=== PATIENT | male | born 1985 | race Caucasian/White ===

== ENCOUNTER 2019-06-23 20:04 | Emergency (ER) | payer SELFPAY ==
[~2019-06-23] VITALS: Ht 177.8 cm; Wt 95.2 kg
[~2019-06-23 20:04] MED LIST: ACET-141 PO; HYDR-3980 PO; IBUP-1542 PO; SULF1TAB31 PO
--- NOTE | 2019-06-23 20:07 | ERD ---
ER Documentation Chief Complaint Chief Complaint unable to urinate HPI The patient is a 33-year-old male, presenting to the ER because he is unable to urinate for the last hour, had similar symptom about 7 years ago. He denies fever, chills, neck pain, chest pain, dyspnea, diarrhea, constipation. He does not smoke nor drink He was treated by EMS with fentanyl 100 mcg IV with some response. Past medical history: History of kidney stone Past surgical history: None ROS All systems reviewed and are negative except as per history of present illness. Medications Home Meds Active Scripts Hydrocodone/Acetaminophen (Wells 10-325 Tablet) 1 Each Tablet, 1 TAB PO Q6H PRN for PAIN, #7 TAB Prov:ANN BUCK MD 06/23/19 Ibuprofen* (Motrin*) 600 Mg Tab, 600 MG PO Q6H PRN for PAIN AND OR ELEVATED TEMP, #30 TAB Prov:ANN BUCK MD 06/23/19 Sulfamethoxazole/Trimethoprim* (Bactrim Ds* Tablet) 1 Each Tablet, 1 TAB PO BID for 10 Days, TAB Prov:ANN BUCK MD 06/23/19 Allergies Allergies: Coded Allergies: No Known Allergy (Unverified , 06/23/19) Physical Exam Vitals Vital Signs Date Temp Pulse Resp B/P (MAP) Pulse Ox O2 O2 Flow FiO2 Time Delivery Rate 06/23/19 98.8 90 36 110/93 100 Room Air 20:19 (99) 06/23/19 98.8 90 36 110/93 100 20:15 (99) Physical Exam Const: No acute distress. Head: Atraumatic. Eyes: Normal Conjunctiva. ENT: Normal External Ears, Nose and Mouth. Neck: Full range of motion. No meningismus. Resp: Clear to auscultation bilaterally. Cardio: Regular rate and rhythm. Abd: Soft, non distended, normal bowel sounds, vague and diffuse abdominal tenderness, more tenderness in the lower abdomen. Skin: No petechiae or rashes. Back: No midline or flank tenderness. Ext: No cyanosis, or edema. Neur: Awake and alert. No focal deficit Psych: Anxious Result Diagram: 06/23/19202206/23/192022 Results 24 hrs Laboratory Tests Test 06/23/19 20:23 06/23/19 22:48 White Blood Count 9.9 10^3/ul Red Blood Count 5.07 10^6/ul Hemoglobin 14.8 g/dl Hematocrit 41.8 % Mean Corpuscular Volume 82.4 fl Mean Corpuscular Hemoglobin 29.2 pg Mean Corpuscular Hemoglobin Concent 35.4 g/dl Red Cell Distribution Width 12.1 % Platelet Count 296 10^3/UL Mean Platelet Volume 9.3 fl Immature Granulocytes % 0.400 % Neutrophils % 78.1 % Lymphocytes % 15.3 % Monocytes % 5.6 % Eosinophils % 0.1 % Basophils % 0.5 % Nucleated Red Blood Cells % 0.0 /100WBC Immature Granulocytes # 0.040 10^3/ul Neutrophils # 7.8 10^3/ul Lymphocytes # 1.5 10^3/ul Monocytes # 0.6 10^3/ul Eosinophils # 0.0 10^3/ul Basophils # 0.1 10^3/ul Nucleated Red Blood Cells # 0.0 10^3/ul Sodium Level 140 mmol/L Potassium Level 3.4 mmol/L Chloride Level 105 mmol/L Carbon Dioxide Level 21 mmol/L Anion Gap 14 Blood Urea Nitrogen 16 mg/dl Creatinine 0.70 mg/dl Est Glomerular Filtrat Rate mL/min > 60 mL/min Glucose Level 112 mg/dl Calcium Level 9.8 mg/dl Total Bilirubin 0.7 mg/dl Direct Bilirubin 0.00 mg/dl Indirect Bilirubin 0.7 mg/dl Aspartate Amino Transf (AST/SGOT) 32 IU/L Alanine Aminotransferase (ALT/SGPT) 46 IU/L Alkaline Phosphatase 74 IU/L Total Protein 8.0 g/dl Albumin 4.7 g/dl Globulin 3.30 g/dl Albumin/Globulin Ratio 1.42 Lipase 42 U/L Bedside Urine pH (LAB) 6.5 Bedside Urine Protein (LAB) 1+ Bedside Urine Glucose (UA) Negative Bedside Urine Ketones (LAB) Negative Bedside Urine Blood 1+ Bedside Urine Nitrite (LAB) Negative Bedside Urine Leukocyte Esterase (L Negative Current Medications Medications Dose Sig/Arnaldo Start Time Status Last (Trade) Ordered Route PRN Stop Time Admin Dose Reason Admin 1 mg ONCE STAT 06/23/19 DC 06/23/19 Hydromorphone IV 20:08 20:11 HCl 06/23/19 20:09 (Dilaudid) Ketorolac 30 mg ONCE STAT 06/23/19 DC 06/23/19 Tromethamine IV 20:08 20:14 (Toradol) 06/23/19 20:09 Lidocaine 20 ml ONCE ONCE 06/23/19 DC 06/23/19 (Lidocaine MM 22:00 21:59 2% Urojet) 06/23/19 22:01 Ondansetron 4 mg ONCE STAT 06/23/19 DC 06/23/19 HCl (Zofran IV 21:47 22:00 Inj) 06/23/19 21:48 Lorazepam 0.5 mg ONCE ONCE 06/23/19 DC 06/23/19 (Ativan) IV 22:00 22:00 06/23/19 22:01 Potassium 40 meq ONCE STAT 06/23/19 DC 06/23/19 Chloride PO 22:31 23:10 (Klor-Con 20) 06/23/19 22:41 1 tab ONCE ONCE 06/23/19 DC 06/23/19 Trimethoprim/ PO 23:00 23:11 06/23/19 23:01 Sulfamethoxaz ole (Bactrim (Ds)) Procedures/[place] [address] Radiology Main Line: [phone] DIAGNOSTIC IMAGING REPORT Patient: [place] GARCÍA : 1985 Age: 33 Sex: M MR #: [id number] DOS: 06/23/192007 Ordering MD: ANN BUCK MD Location: E/R Room/Bed: PROCEDURE: CT Abdomen and Pelvis without contrast. CLINICAL INDICATION: Abdominal pain. TECHNIQUE: Unenhanced CT scan of the abdomen and pelvis was performed on a multi-detector high-resolution CT scanner. Coronal and sagittal reformatted florence ges were obtained from the axial source images. Images were reviewed on a high- resolution PACS workstation. The total exam CTDI equals 17.1 mGy and the total exam DLP equals 1098.9 mGy-cm. DICOM images are available. One or more of the following dose reduction techniques were utilized: 1.) Automated exposure control 2.) Adjustment of the mA +/- kV according to patient's size 3.) Use of iterative reconstruction technique. COMPARISON: None available in the PACs at time of image interpretation. FINDINGS: Evaluation of the soft tissues and viscera is limited in the absence of contrast. Partially visualized mild bibasilar pulmonary subsegmental atelectasis, evaluation degraded by respiratory motion artifact. Heart base appears normal. Systemic vasculature appears grossly normal. No pathologic lymphadenopathy identified by imaging criteria. Visualized liver demonstrates normal size and contour, without identifiable focal mass lesion in the absence of intravenous contrast. Gallbladder is mildly distended without identifiable pericholecystic inflammatory change or extrahepatic biliary ductal dilatation. Pancreas demonstrates normal contour, without identifiable peripancreatic inflammatory change. Spleen is normal in size. Adrenal glands appear normal. Small sliding hiatal hernia involving the gastric cardia and proximal fundus. Bowel is unobstructed without free air, free fluid or focal mesenteric inflammatory change. Appendix appears normal. No identifiable significant diverticulosis nor evidence of acute diverticulitis. Kidneys demonstrate normal size, contour and orientation without identifiable focal mass lesion in the absence of intravenous contrast. No nephrolithiasis nor identifiable ureterolithiasis. Mild bilateral hydroureteronephrosis to the level of the ureterovesicular junctions in the presence of a severely distended urinary bladder. Prostate gland is mildly enlarged to 5.6 cm no with slight impression on the bladder neck. Osseous structures are intact with minimal spondylotic changes. Tiny fatty umbilical and bilateral in renal hernias. Minimal symmetric gynecomastia. IMPRESSION: 1. Mild bilateral hydroureteronephrosis in the presence of a severely distended urinary bladder, possibly reflecting bladder outlet obstruction. No identifiable nephrolithiasis or ureterolithiasis. Consider Kaye catheter decompression. 2. Mild prostatomegaly impressing on the bladder neck, possibly reflecting acute prostatitis. 3. Small sliding hiatal hernia. The bowel is unobstructed without evidence of perforation or abscess, and the appendix appears normal. RPTAT: HSAN Physician Viviana Date Time Electronically viewed and signed by Physician Viviana on 06/23/2019 21:04 xN/ CC: ANN BUCK MD [id number] MEDICAL MAKING DECISION: The patient is a 33-year-old male, presenting with acute prostatitis, acute urine retention, acute hypokalemia. He was treated with Dilaudid 1 mg IV x2 and Toradol 30 mg IV for pain, Kaye catheter was inserted and drained about 1300 mm of urine with spontaneous relief, he was treated with potassium chloride 40 mEq p.o. for acute hypokalemia, urine culture was submitted, he was treated with Bactrim DS for acute prostatitis The differential diagnoses considered include but are not limited to UTI, prostatitis, bladder outlet obstruction, prostate malignancy, renal colic Departure Diagnosis: Primary Impression: Prostatitis Additional Impressions: Urinary retention Hypokalemia Condition: Good Comments He was discharged with Bactrim DS, Motrin, Wells and a Kaye catheter I discussed the findings with the patient. I advised the patient to follow-up with the, urologist Dr. Leary in 1 to 2 days, sooner if needed and return if any concern. Disclaimer: Inadvertent spelling and grammatical errors are likely due to EHR/dictation software use and do not reflect on the overall quality of patient care. Also, please note that the electronic time recorded on this note does not necessarily reflect the actual time of the patient encounter. ANN BUCK MD Jun 23, 2019 20:07
[2019-06-23] MEDS ORDERED: KETOROLAC 30 MG INJ IV STA (20:08)
[2019-06-23] MEDS ORDERED: HYDROmorphONE 1 MG/ML SYG IV STA (20:08)
[2019-06-23] MEDS ORDERED: HYDROmorphONE 1 MG/ML SYG ONE (20:08)
[2019-06-23 20:15] VITALS: Ht 177.8 cm; Wt 95.2 kg
[2019-06-23] MEDS ORDERED: ONDANSETRON 4 MG INJ IV STA (21:47)
[2019-06-23] MEDS ORDERED: LIDOCAINE 2% 20 ML UROJET SYRINGE MM ONE (22:00)
[2019-06-23] MEDS ORDERED: LORAZEPAM 2 MG INJ IV ONE (22:00)
[2019-06-23] MEDS ORDERED: POTASSIUM CHLORIDE (SR) 20 MEQ TAB PO STA (22:31)
[2019-06-23] MEDS ORDERED: TRIMETHOPRIM/SULFAMETHOX (DS) TAB PO ONE (23:00)
[2019-06-24 00:04] VITALS: BP 134/82; PULSE 88; RESP 16
== END 2019-06-24 00:05 | disposition home or self-care (01) ==
LOC: E/R 20:04
DX: N41.9 Inflammatory disease of prostate, unspecified (principal); E87.6 Hypokalemia
CPT/HCPCS: 51702; 74176; 80053; 81003; 83690; 85025; 87086; J1170; J1885; J2060; J2405; 36415; 96374; 96375

== ENCOUNTER 2019-06-29 05:41 | Emergency (ER) | payer MEDICAID, OTHER ==
[~2019-06-29] VITALS: Ht 172.7 cm; Wt 90.9 kg
[2019-06-29 05:45] VITALS: Ht 172.7 cm; Wt 90.9 kg
--- NOTE | 2019-06-29 06:25 | ERD ---
ER Documentation Chief Complaint Chief Complaint STATES PCP SENT HERE FOR CATH REMOVAL; PLACED IN LAST WEEK HPI This is a 34-year-old male with no reported past medical history is returning to the emergency department for catheter removal. The patient was here 1 to 2 weeks ago for significant lower abdominal pain and difficulty with urination. The patient was diagnosed with prostatitis and bladder outlet obstruction potentially from the inflamed prostate. Kaye catheter was placed in the emergency department with immediate decompression of the bladder and immediate pain relief. The patient was discharged on Bactrim and told to return to the emergency department in 1 week to have the catheter removed. The patient denies feeling sick recently. The patient denies fever or chills. The patient has had no headache or vision changes. The patient does not endorse neck or back pain. The patient denies lightheadedness or dizziness. The patient has had no chest pain or trouble breathing. The patient denies nausea or vomiting. The patient denies abdominal pain. The patient denies changes to bowel movements. The patient has had no focal deficits. The patient has had no weakness or numbness or tingling to the face or extremities. ROS All systems reviewed and are negative except as per history of present illness. Medications Home Meds Active Scripts Hydrocodone/Acetaminophen ([place] 10-325 Tablet) 1 Each Tablet, 1 TAB PO Q6H PRN for PAIN, #7 TAB Prov:ANN BUCK MD 06/23/19 Ibuprofen* (Motrin*) 600 Mg Tab, 600 MG PO Q6H PRN for PAIN AND OR ELEVATED TEMP, #30 TAB Prov:ANN BUCK MD 06/23/19 Sulfamethoxazole/Trimethoprim* (Bactrim Ds* Tablet) 1 Each Tablet, 1 TAB PO BID for 10 Days, TAB Prov:ANN BUCK MD 06/23/19 Reported Medications Acetaminophen* (Acetaminophen*) 500 MG Extra Strength Tablet, 500 MG PO Q4H PRN for PAIN AND OR ELEVATED TEMP, TAB 06/24/19 Allergies Allergies: Coded Allergies: No Known Allergy (Unverified , 06/23/19) PMhx/Soc Medical and Surgical Hx: pt denies Medical Hx, pt denies Surgical Hx History of Surgery: No Hx Neurological Disorder: No Hx Respiratory Disorders: No Hx Cardiac Disorders: No Hx Psychiatric Problems: No Hx Miscellaneous Medical Probl: No Hx Alcohol Use: No Hx Substance Use: No Hx Tobacco Use: No FmHx Family History: No diabetes Physical Exam Vitals Vital Signs Date Temp Pulse Resp B/P (MAP) Pulse Ox O2 O2 Flow FiO2 Time Delivery Rate 06/29/19 97.8 75 19 131/87 98 05:45 (102) Physical Exam Const: No acute distress Head: Atraumatic Eyes: Normal Conjunctiva ENT: Normal External Ears, Nose and Mouth. Neck: Full range of motion. No meningismus. Resp: Clear to auscultation bilaterally Cardio: Regular rate and rhythm, no murmurs Abd: Soft, non tender, non distended. Normal bowel sounds : Kaye catheter in place. No alireza blood in the urine Skin: No petechiae or rashes Back: No midline or flank tenderness Ext: No cyanosis, or edema Neur: Awake and alert Psych: Normal Mood and Affect Procedures/MDM MDM Previous medical records, if available, were reviewed. The patient is presenting for catheter removal. He was diagnosed with prostatitis and has been treated for this with Bactrim. The patient has not had any issues since his last visit. The patient's urinalysis was unremarkable previously. The patient's blood work was likewise unremarkable. I do not feel that laboratory testing is warranted at this time. The patient's catheter was removed without difficulty. The patient was instructed to follow-up with a urologist. He may also follow-up with his primary care physician. TREATMENT/DISPOSITION The patient does not require emergent treatment. DISCHARGE Upon reevaluation of the patient, symptoms have improved. No emergent diagnoses were identified. At this time, I feel that the patient stable for discharge. The patient was instructed to follow-up with a primary care physician in 1-3 days. The patient will be given strict precautions with which to return to the emergency department. Prescriptions: None The patient's blood pressure was elevated at greater than 120/80 while in the emergency department. The patient was otherwise stable with no evidence of hypertensive urgency or emergency. The patient does not require admission for blood pressure control. I have discussed with the patient the risks of hypertension. I have instructed the patient to return to the ER for any new or worsening symptoms including chest pain, shortness of breath, headache, blurred vision, confusion, nausea, vomiting or LOC. I have advised the patient to follow up with the primary care physician for outpatient monitoring and treatment for hypertension in 1-3 days. DISCLAIMER Inadvertent spelling and grammatical errors are likely due to EHR/dictation software use and do not reflect on the overall quality of patient care. Note that the electronic time recorded on this note does not necessarily reflect the actual time of the patient encounter. Departure Diagnosis: Primary Impression: Encounter for Kaye catheter removal Additional Impressions: History of prostatitis Bladder outlet obstruction Condition: Stable Patient Instructions: Kaye Catheter Removal Referrals: TERESSA LOPES MD Additional Instructions: Thank you for for coming to [facility] for your care today. Please ask your nurse or provider if you have questions about your care today and do not leave until all your questions have been answered. Please use any medications given as directed and follow-up with your doctor (or the doctor you were referred to) in the next 1-3 days. If you do not have a primary care doctor you may follow up at the [facility] or [facility] (listed below). You may also use motrin and tylenol as needed for fever and/or pain unless instructed otherwise by your provider or nurse. Indications for more urgent follow-up have been discussed, but you may return to the Emergency Department at ANY time for any worrisome or worsening symptoms. If you have abdominal pain, please know that no test or exam you received is perfect and you should follow up within 8 hours for continued pain. If you had any imaging studies today, such as an X-Ray or CT Scan, these studies will be reviewed later by a radiologist. You will be called if there are important findings that were not identified today, so make sure the contact information you provided at registration is correct. If you received any narcotic pain control medicine today, such as Vicodin, Morphine or Dilaudid, your coordination and judgment may be affected for a number of hours. Please do not drive or operate heavy machinery, and you may want someone to assist you at home. If you were given a prescription for narcotic medication, be aware that it is very addictive- use sparingly and only if necessary. PLEASE SEEK FURTHER EVALUATION AND MANAGEMENT AT YOUR DOCTORS OFFICE WITHIN THE NEXT 1-3 DAYS. IT IS YOUR RESPONSIBILITY TO MAKE AN APPOINTMENT FOR FOLOW-UP CARE. IF YOU HAVE A PRIMARY DOCTOR, PLEASE CALL THEIR OFFICE TO SCHEDULE AN APPOINTMENT FOR FOLLOW UP. IF YOU DO NOT HAVE A PRIMARY DOCTOR YOU CAN CALL OUR PHYSICIAN REFERRAL HOTLINE AT IF YOU CAN NOT AFFORD TO SEE A PHYSICIAN YOU CAN CHOSE FROM THE FOLLOWING [facility]: [facility] [address] [facility] [address] [facility] [address] [facility] [address] [facility] [address]. [facility]. [address] JERMAINE DEL VALLE MD Jun 29, 2019 06:25
[2019-06-29 07:40] VITALS: BP 124/74; PULSE 72; RESP 14
== END 2019-06-29 07:45 | disposition home or self-care (01) ==
LOC: E/R 05:41
DX: N32.0 Bladder-neck obstruction (principal); Z87.438 Personal history of other diseases of male genital organs
CPT/HCPCS: 51702; Z7502